=== PATIENT | male | born 1985 | race American Indian/Alaskan Native ===

== ENCOUNTER 2016-12-10 22:41 | Inpatient (IN) | payer MEDICAID, OTHER ==
--- NOTE | 2016-12-10 23:01 | C.PDOC ---
History Of Present Illness Patient is a medically cleared transfer for psychiatric admission from [facility], accepted under Dr. Easley for schizoaffective disorder. Denies physical complaints at this time. Time Seen by Provider: 12/10/16 23:00 Chief Complaint (Nursing): Psychiatric Evaluation History Per: Patient History/Exam Limitations: no limitations Onset/Duration Of Symptoms: Days Current Symptoms Are (Timing): Still Present Suicide/Self Injury Attempted (Context): None Modifying Factor(s): None Severity: None Pain Scale Rating Of: 0 Associated Symptoms: denies: Depression, Suicidal Thoughts, Suicidal Plan Involuntary Hold By: None Recent travel outside of the [facility]: No Past Medical History Reviewed: Historical Data, Nursing Documentation, Vital Signs Vital Signs: Last Vital Signs Temp 98.3 F 12/10/16 22:46 Pulse 102 H 12/10/16 22:46 Resp 16 12/10/16 22:46 BP 109/63 12/10/16 22:46 Pulse Ox 99 12/10/16 23:01 - Medical History PMH: Schizophrenia Surgical History: No Surg Hx Family History: States: Unknown Family Hx - Social History Hx Alcohol Use: No Hx Substance Use: No - Immunization History Hx Tetanus Toxoid Vaccination: No Hx Influenza Vaccination: No Hx Pneumococcal Vaccination: No Review Of Systems Constitutional: Negative for: Fever, Chills Gastrointestinal: Negative for: Nausea, Vomiting, Diarrhea Psych: Positive for: Psychosis Physical Exam - Physical Exam Appears: Non-toxic, No Acute Distress Skin: Normal Color, Warm, Dry Head: Atraumatic, Normacephalic Oral Mucosa: Moist Chest: Symmetrical, No Tenderness Cardiovascular: Rhythm Regular, No Murmur Respiratory: No Rales, No Rhonchi, No Wheezing Gastrointestinal/Abdominal: Soft, No Tenderness Neurological/Psych: Oriented x3 ED Course And Treatment O2 Sat by Pulse Oximetry: 99 (Room air) Pulse Ox Interpretation: Normal Disposition Discussed With : Rocio Easley Comment: accepted the pt on his service and took over the care at 11 PM Doctor Will See Patient In The: Hospital Counseled Patient/Family Regarding: Studies Performed, Diagnosis - Disposition Disposition: HOSPITALIZED Disposition Time: 23:00 Condition: FAIR Forms: [facility] (Turkmen) - POA Present On Arrival: None - Clinical Impression Clinical Impression: Schizoaffective disorder - Scribe Statement The provider has reviewed the documentation as recorded by the Scribe Alex Ashraf All medical record entries made by the Mannyibhorace were at my direction and personally dictated by me. I have reviewed the chart and agree that the record accurately reflects my personal performance of the history, physical exam, medical decision making, and the department course for this patient. I have also personally directed, reviewed, and agree with the discharge instructions and disposition. Decision To Admit - Pt Status Changed To: Hospital Disposition Of: Inpatient - Admit Certification Admit to Inpatient:: After my assessment, the patient will require hospitalization for at least two midnights. This is because of the severity of symptoms shown, intensity of services needed, and/or the medical risk in this patient being treated as an outpatient. - InPatient: Physician Admission Certification: I certify that this patient requires 2 or more midnights of care for the following reason:: After my assessment, the patient will require hospitalization for at least two midnights. This is because of the severity of symptoms shown, intensity of services needed, and/or the medical risk in this patient being treated as an outpatient. - . Bed Request Type: Psychiatry Admitting Physician: Rocio Easley Patient Diagnosis: Schizoaffective disorder
--- NOTE | 2016-12-11 00:04 | PCM.BM ---
<Teodoro Sultana - Last Filed: 12/11/16 00:01> Treatment Plan Problems - Problems identified on initial assessmt Depression Date Initiated: 12/10/16 Time Initiated: 23:50 Assessment reference: NA Status: Active Auditory Hallucination Date Initiated: 12/10/16 Time Initiated: 23:50 Assessment reference: NA Status: Active Suicidal Ideation Date Initiated: 12/10/16 Time Initiated: 23:50 Assessment reference: NA Status: Active Treatment assets and liabiliti Patient Assests: cooperative, self-reliant, ADL independent, physically healthy Patient Liabilities: live alone, physical pain, financial problems, poor support system, substance abuse (Patient is a poor historian) - Milieu Protocol Maintain good personal hygiene: daily Encourage regular showers, daily Remind patient to perform daily oral care, daily Assist patient to perform ADL's Maintain personal safety: every shift Educate patient to report safety concerns to staff, every shift Monitor environment for contraband/sharps Medication safety: Monitor for expected outcome, potential side effects: every shift, Assess barriers to learning: every shift, Assess readiness for medication education: every shift <Magalis Mccabe - Last Filed: 12/12/16 11:08> Family Contact Family involvement: Family/SO is involved Family contact: Patient agrees to contact Family contact name: Santos Gallego Family contacted how many times per week?: 1 - Goals for Treatment Patient goals for treatment: "I don't want to take meds." Discharge/Continuing Care - Education Needs Education Needs: Patient Medication, Patient Coping Skills - Discharge Discharge Criteria: Tolerates medication w/o severe side effects, Free of Suicidal thoughts Discharge to:: Group Home - Treatment Team Participation Patient/Family/SO Statement: 12/12/16 11:09 "Medication makes me tongue tied." Discussed with Family/SO: Yes Was Patient/Family/SO present at Treatment Team Meeting: Yes <Rocio Easley - Last Filed: 12/12/16 11:20> - Diagnosis (1) Schizoaffective disorder Status: Acute Interventions: 12/12/16 11:20 Attend groups Take meds
--- NOTE | 2016-12-11 16:12 | PCM.PSYCH ---
Initial Psychiatric Evaluation - Initial Psychiatric Evaluation Type of Admission: Voluntary Legal Status: Capacity Chief Complaint (in patient's own words): I was hearing voices." History of Present Illness and Precipitating Events: Patient is a 31 y.o. Male, currently unemployed and homeless was admitted for depression, and auditory hallucinations. Patient appeared disorganized and internally preoccupied. He remained paranoid and delusional throughout the evaluation. Patient says his sister took him to [facility] [place] yesterday and transferred to [facility]. Patient's sister was contacted by phone to inquire reason for admission but could not be reached. Patient reports hearing voices, telling him to do stuff. when asked how many voices he says 1. Patient says last time he was at [facility] [place] was approximately 5 years ago for suicidal ideation. Patient says he did not see a psychiatrist after that hospitalization. Patient is currently homeless since last year and was living with his mother before becoming homeless. Patient currently does not have a job and has not been working for a long time. Patient says he is currently not taking any medications. Patient denies drug use, however urine drug screen was positive for heroin and cocaine. Patient says he does not remember when the last time he used drugs was or how much he used. Patient denies any allergies but says that the pill locks his tongue. Patient did not specify which medication was the pill. Patient reports feeling depressed and reports feelings of hopelessness and helplessness. Patient remained superficially cooperative but guarded about the details. He denies any visual hallucinations or delusions. PMH None Current Medications: Active Medications Generic Name Dose Route Start Last Admin Trade Name Freq PRN Reason Stop Dose Admin Benztropine Mesylate 2 mg 12/11/16 00:01 Cogentin PO Q6 PRN Extra Pyramidal Symptoms Dicyclomine HCl 10 mg 12/11/16 00:01 Bentyl PO Q6 PRN Muscle spasm Diphenhydramine HCl 50 mg 12/11/16 00:01 Benadryl PO Q6 PRN Extra Pyramidal Symptoms Haloperidol 5 mg 12/11/16 00:01 Haldol PO Q8 PRN Moderate Agitation Haloperidol Lactate 5 mg 12/11/16 00:01 Haldol IM Q8 PRN Moderate Agitation Hydroxyzine HCl 25 mg 12/11/16 00:03 Atarax PO Q6 PRN Anxiety Trazodone HCl 50 mg 12/11/16 22:00 Desyrel PO HS DINA Past Psychiatric History - Past Psychiatric History Previous Treatment History: Inpatient Pertinent Medical Hx (Current Medical&Sleep Prob, Allergies): Allergies Allergy/AdvReac Type Severity Reaction Status Date / Time No Known Allergies Allergy Unverified 12/10/16 22:55 Unobtainable 12/10/16 Review of Systems - Review of Systems All systems: reviewed and no additional remarkable complaints except - Psychiatric Psychiatric: Anxiety, Auditory Hallucinations, Irritability, Paranoia Mental Status Examination - Personal Presentation Personal Presentation: Looks stated age - Affect Affect: Constricted, Depressed - Motor Activity Motor Activity: Calm - Reliability in Providing Information Reliability in Providing Information: Poor, due to alteration in thoughts, Poor , due to altered mood - Speech Speech: Disorganized - Mood Mood: Depressed, Anxious - Formal Thought Process Formal Thought Process: Hallucinations, Delusions, Paranoia, Loosening of associations - Hallucinations/Delusions Hallucinations: Auditory - Obsessions/Compulsions Obsessions: No Compulsions: No - Cognitive Functions Orientation: Person, Place, Situation, Time Sensorium: Alert Attention/Concentration: Attentive Abstract Thinking: [place] Estimate of Intelligence: Below average Judgement: Imparied, as evidence by: Poor judgement, Imparied, as evidence by: Lack of insight into illness - Risk Risk: Diminished functioning - Strength & Assets Inventory Strength & Assets Inventory: Family support DSM 5 DX - DSM 5 DSM 5 Diagnosis: Schizoaffective disorder depressed type Opioid use disorder moderate Cocaine use disorder moderate - Recommended/Plan of Treatment Treatment Recommendations and Plan of Treatment: Schizoaffective disorder depressed type CBT Psychoeducation Supportive therapy, group therapy, individual therapy Neurontin 100 mg pO TID Trazodone 50 mg by mouth daily at bedtime Opioid use disorder moderate CBT Psychoeducation Supportive therapy, individual therapy Clonidine when necessary Cocaine use disorder moderate CBT Psychoeducation Supportive therapy, individual therapy Use [place] for abstinence
--- NOTE | 2016-12-12 10:47 | PCM.PYCHPN ---
Psychiatric Progress Note - Psychiatric Progress Note Patient seen today, length of contact: 17 min Patient Chief Complaint: I am hearing voices." Problems Identified/Issues Discussed: Patient seen and evaluated, chart reviewed and discussed with the nurse. Patient remained disorganized and internally preoccupied. Patient remained isolated, confined and withdrawn. Staff reports that pt was talking to himself in AM. He still reports of hearing voices. Patient still appears paranoid and delusional. He reports depressed mood and feelings of hopelessness and helplessness. He is refusing to take medications. Supportive therapy and psychoeducation were given. Medication Change: Yes (start prolixin) Medical Record Reviewed: Yes Mental Status Examination - Cognitive Function Orientation: Person, Place, Situation, Time Memory: Intact Attention: Poor Concentration: Poor Association: Loose Fund of Knowledge: Poor - Mood Mood: Depressed, Anxious - Affect Affect: Constricted, Depressed - Speech Speech: Soft - Formal Thought Process Formal Thought Process: Hallucinations, Delusions, Paranoia, Loosening of associations - Suicidal Ideation Suicidal Ideation: No - Homicidal Ideation Homicidal Ideation: No Goal/Treatment Plan - Goal/Treatment Plan Need for Continued Stay: Discharge may exacerbated symptoms, Severe functional impairment Progress Toward Problem(s) and Goals/Treatment Plan: Schizoaffective disorder depressed type CBT Psychoeducation Supportive therapy, group therapy, individual therapy Neurontin 300 mg pO TID Trazodone 50 mg by mouth daily at bedtime Proloxin 5 mg PO BID Cogentin 1 mg PO BID Opioid use disorder moderate CBT Psychoeducation Supportive therapy, individual therapy Clonidine when necessary Cocaine use disorder moderate CBT Psychoeducation Supportive therapy, individual therapy Use [place] for abstinence - Smoking Cessation Smoking Cessation Initiated: No
--- NOTE | 2016-12-13 19:14 | PCM.PYCHPN ---
Psychiatric Progress Note - Psychiatric Progress Note Patient seen today, length of contact: 17 min Patient Chief Complaint: "I can't take these meds!!" Problems Identified/Issues Discussed: The pt is seen, chart reviewed and case discussed. He is very paranoid, bizarre and internally preoccupied. He is fixated on his "tongue locking up," with meds which he likely had sometime in the past. No matter what reassurance given about meds like seroquel he wouldn;t yield or understand. He is unengagable almost. Forms Examiner first ordered seroquel but it would take so long to reach a therapeutic dose and he is too paranoid about meds, so zyprexa is started instead. Risks discussed. Coegntin is even kept despite no need, until he gets more reasonable. He denied SI, HI. Affect is odd, isolates self a lot, talks to self Medication Change: Yes (DC all and start zyprexa) Medical Record Reviewed: Yes Mental Status Examination - Cognitive Function Orientation: Person, Place, Situation, Time Memory: Intact Attention: Poor Concentration: Poor Association: Loose Fund of Knowledge: Poor - Mood Mood: Depressed, Anxious - Affect Affect: Constricted, Depressed - Speech Speech: Soft - Formal Thought Process Formal Thought Process: Hallucinations, Delusions, Paranoia, Loosening of associations - Suicidal Ideation Suicidal Ideation: No - Homicidal Ideation Homicidal Ideation: No Goal/Treatment Plan - Goal/Treatment Plan Need for Continued Stay: Discharge may exacerbated symptoms, Severe functional impairment Progress Toward Problem(s) and Goals/Treatment Plan: Zyprexa 10 mg for psychosis prn meds Psychoed Support After care likely to [facility] or [facility] and with IC[facility] Estimated Date of D/C: 12/19/16
--- NOTE | 2016-12-14 19:29 | PCM.PYCHPN ---
Psychiatric Progress Note - Psychiatric Progress Note Patient seen today, length of contact: 18 min Patient Chief Complaint: "I get tongue problems" Problems Identified/Issues Discussed: The pt is seen, chart reviewed and case discussed. He is STILL very paranoid, bizarre and internally preoccupied. Refused meds again and seroquel is switched to zyprexa He is fully fixated on his "tongue locking up," with meds which he likely had sometime in the past. he is also on cogentin which he takes He denied SI, HI. Affect is odd, isolates self a lot, talks to self, smiles to self Psychoed on meds and risks given Medication Change: Yes (DC all and start zyprexa) Medical Record Reviewed: Yes Mental Status Examination - Cognitive Function Orientation: Person, Place, Situation, Time Memory: Intact Attention: Poor Concentration: Poor Association: Loose Fund of Knowledge: Poor - Mood Mood: Depressed, Anxious - Affect Affect: Constricted, Depressed - Speech Speech: Soft - Formal Thought Process Formal Thought Process: Hallucinations, Delusions, Paranoia, Loosening of associations - Suicidal Ideation Suicidal Ideation: No - Homicidal Ideation Homicidal Ideation: No Goal/Treatment Plan - Goal/Treatment Plan Need for Continued Stay: Discharge may exacerbated symptoms, Severe functional impairment Progress Toward Problem(s) and Goals/Treatment Plan: Zyprexa 10 mg for psychosis prn meds Psychoed Support After care likely to [facility] or [facility] and with ICMS Estimated Date of D/C: 12/19/16
--- NOTE | 2016-12-15 15:29 | PCM.PYCHPN ---
Psychiatric Progress Note - Psychiatric Progress Note Patient seen today, length of contact: 18 min Patient Chief Complaint: I am hearing voices." Problems Identified/Issues Discussed: Patient seen and evaluated, chart reviewed and discussed with the nurse. Patient remained internally preoccupied and still responding to internal stimuli. Patient is isolated and withdrawn. Patient was walking in hallway and said "I'll call you" to himself. As per the staff pt took his zyprexa last night , denies any side effects and feels the medications are helping him. Patient says the "medications are not locking his tongue" currently but is worried they may eventually. Patient denies any SI/HI. Supportive therapy and psychoeducation were given. Medication Change: Yes (DC all and start zyprexa) Medical Record Reviewed: Yes Mental Status Examination - Cognitive Function Orientation: Person, Place, Situation, Time Memory: Intact Attention: Poor Concentration: Poor Association: Loose Fund of Knowledge: Poor - Mood Mood: Depressed, Anxious - Affect Affect: Constricted, Depressed - Speech Speech: Soft - Formal Thought Process Formal Thought Process: Hallucinations, Delusions, Paranoia, Loosening of associations - Suicidal Ideation Suicidal Ideation: No - Homicidal Ideation Homicidal Ideation: No Goal/Treatment Plan - Goal/Treatment Plan Need for Continued Stay: Discharge may exacerbated symptoms, Severe functional impairment Progress Toward Problem(s) and Goals/Treatment Plan: Schizoaffective disorder depressed type CBT Psychoeducation Supportive therapy, group therapy, individual therapy D/C Neurontin 300 mg pO TID Trazodone 50 mg by mouth daily at bedtime D/C Proloxin 5 mg PO BID Cogentin 1 mg PO BID Zyprexa 10 mg O QHS Opioid use disorder moderate CBT Psychoeducation Supportive therapy, individual therapy Clonidine when necessary Cocaine use disorder moderate CBT Psychoeducation Supportive therapy, individual therapy Use [place] for abstinence Estimated Date of D/C: 12/19/16 - Smoking Cessation Smoking Cessation Initiated: No
--- NOTE | 2016-12-16 15:46 | PCM.PYCHPN ---
Psychiatric Progress Note - Psychiatric Progress Note Patient seen today, length of contact: 18 min Patient Chief Complaint: I am hearing voices." Problems Identified/Issues Discussed: Patient seen and evaluated, chart reviewed and discussed with the nurse. Patient reports feeling "alright." However, as per the staff, patient remains withdrawn, isolated, paranoid and bizarre. Patient is internally preoccupied and responding to internal stimuli. Patient was seen swinging his arms in the air and talking to himself. Patient says he is taking his medications and that "these medications are good" and not "lock up his tongue." Patient denies SI or any plan. He needs more time to stabilize. Supportive therapy and psychoeducation were given. Medication Change: Yes (increase zyprexa) Medical Record Reviewed: Yes Mental Status Examination - Cognitive Function Orientation: Person, Place, Situation, Time Memory: Intact Attention: Poor Concentration: Poor Association: Loose Fund of Knowledge: Poor - Mood Mood: Depressed, Anxious - Affect Affect: Constricted, Depressed - Speech Speech: Soft - Formal Thought Process Formal Thought Process: Hallucinations, Delusions, Paranoia, Loosening of associations - Suicidal Ideation Suicidal Ideation: No - Homicidal Ideation Homicidal Ideation: No Goal/Treatment Plan - Goal/Treatment Plan Need for Continued Stay: Discharge may exacerbated symptoms, Severe functional impairment Progress Toward Problem(s) and Goals/Treatment Plan: Schizoaffective disorder depressed type CBT Psychoeducation Supportive therapy, group therapy, individual therapy Trazodone 50 mg by mouth daily at bedtime Cogentin 1 mg PO BID Zyprexa 10 mg O QHS Zyprexa 5 mg PO Daily Opioid use disorder moderate CBT Psychoeducation Supportive therapy, individual therapy Clonidine when necessary Cocaine use disorder moderate CBT Psychoeducation Supportive therapy, individual therapy Use [place] for abstinence Estimated Date of D/C: 12/19/16 - Smoking Cessation Smoking Cessation Initiated: No
--- NOTE | 2016-12-17 11:09 | PCM.PYCHPN ---
Psychiatric Progress Note - Psychiatric Progress Note Patient seen today, length of contact: 18 min Patient Chief Complaint: I am hearing voices." Problems Identified/Issues Discussed: Patient seen and evaluated, chart reviewed and discussed with the nurse. Patient reports feeling "real good." Patient remains isolated and withdrawn and bizarre. Patient is internally preoccupied and responding to internal stimuli. Patient is seen talking to himself in the hallway and swinging his arms in the air. Patient says he is taking his medications and that "these medications are good" and do not "lock up his tongue." Patient denies SI or any plan, racing thoughts or AVH. He needs more time to stabilize. Supportive therapy and psychoeducation were given. Medication Change: Yes (increase zyprexa) Medical Record Reviewed: Yes Mental Status Examination - Cognitive Function Orientation: Person, Place, Situation, Time Memory: Intact Attention: Poor Concentration: Poor Association: Loose Fund of Knowledge: Poor - Mood Mood: Depressed, Anxious - Affect Affect: Constricted, Depressed - Speech Speech: Soft - Formal Thought Process Formal Thought Process: Hallucinations, Delusions, Paranoia, Loosening of associations - Suicidal Ideation Suicidal Ideation: No - Homicidal Ideation Homicidal Ideation: No Goal/Treatment Plan - Goal/Treatment Plan Need for Continued Stay: Discharge may exacerbated symptoms, Severe functional impairment Progress Toward Problem(s) and Goals/Treatment Plan: Schizoaffective disorder depressed type CBT Psychoeducation Supportive therapy, group therapy, individual therapy Trazodone 50 mg by mouth daily at bedtime Cogentin 1 mg PO BID Zyprexa 10 mg O QHS Zyprexa 5 mg PO Daily Opioid use disorder moderate CBT Psychoeducation Supportive therapy, individual therapy Clonidine when necessary Cocaine use disorder moderate CBT Psychoeducation Supportive therapy, individual therapy Use [place] for abstinence Estimated Date of D/C: 12/19/16
--- NOTE | 2016-12-18 14:43 | PCM.PYCHPN ---
Psychiatric Progress Note - Psychiatric Progress Note Patient seen today, length of contact: 18 min Patient Chief Complaint: I am not hearing voices anymore." Problems Identified/Issues Discussed: Patient seen and evaluated, chart reviewed and discussed with the nurse. Patient reports that he is not hearing any voices. Patient appeared more organized than before but remained internally preoccupied and responding to internal stimuli. Patient is still talking to himself in the hallway and swinging his arms in the air. Patient remains isolated and withdrawn and bizarre. Patient is taking his medications and denies any side effects. He needs more time to stabilize. Supportive therapy and psychoeducation were given. Medication Change: No Medical Record Reviewed: Yes Mental Status Examination - Cognitive Function Orientation: Person, Place, Situation, Time Memory: Intact Attention: Poor Concentration: Poor Association: Loose Fund of Knowledge: Poor - Mood Mood: Depressed, Anxious - Affect Affect: Constricted, Depressed - Speech Speech: Soft - Formal Thought Process Formal Thought Process: Hallucinations, Delusions, Paranoia, Loosening of associations - Suicidal Ideation Suicidal Ideation: No - Homicidal Ideation Homicidal Ideation: No Goal/Treatment Plan - Goal/Treatment Plan Need for Continued Stay: Discharge may exacerbated symptoms, Severe functional impairment Progress Toward Problem(s) and Goals/Treatment Plan: Schizoaffective disorder depressed type CBT Psychoeducation Supportive therapy, group therapy, individual therapy Trazodone 50 mg by mouth daily at bedtime Cogentin 1 mg PO BID Zyprexa 10 mg O QHS Zyprexa 5 mg PO Daily Opioid use disorder moderate CBT Psychoeducation Supportive therapy, individual therapy Clonidine when necessary Cocaine use disorder moderate CBT Psychoeducation Supportive therapy, individual therapy Use [place] for abstinence Estimated Date of D/C: 12/19/16 - Smoking Cessation Smoking Cessation Initiated: No
--- NOTE | 2016-12-19 08:17 | PCM.BM ---
<Magalis Mccabe - Last Filed: 12/19/16 11:42> Treatment Plan Problems - Problems identified on initial assessmt Problem 1 Date Initiated: 12/10/16 Time Initiated: 23:50 Assessment reference: NA Status: Active Problem 2 Date Initiated: 12/10/16 Time Initiated: 23:50 Assessment reference: NA Status: Active Depression Date Initiated: 12/10/16 Time Initiated: 23:50 Assessment reference: NA Status: Active Auditory Hallucination Date Initiated: 12/10/16 Time Initiated: 23:50 Assessment reference: NA Status: Active Suicidal Ideation Date Initiated: 12/10/16 Time Initiated: 23:50 Assessment reference: NA Status: Active Treatment assets and liabiliti Patient Assests: cooperative, self-reliant, ADL independent, physically healthy Patient Liabilities: live alone, physical pain, financial problems, poor support system, substance abuse (Patient is a poor historian) - Milieu Protocol Maintain good personal hygiene: daily Encourage regular showers, daily Remind patient to perform daily oral care, daily Assist patient to perform ADL's Maintain personal safety: every shift Educate patient to report safety concerns to staff, every shift Monitor environment for contraband/sharps Medication safety: Monitor for expected outcome, potential side effects: every shift, Assess barriers to learning: every shift, Assess readiness for medication education: every shift Milieu Narrative: Schizoaffective disorder depressed type CBT Psychoeducation Supportive therapy, group therapy, individual therapy Trazodone 50 mg by mouth daily at bedtime Cogentin 1 mg PO BID Zyprexa 10 mg O QHS Zyprexa 5 mg PO Daily Opioid use disorder moderate CBT Psychoeducation Supportive therapy, individual therapy Clonidine when necessary Cocaine use disorder moderate CBT Psychoeducation Supportive therapy, individual therapy Use [place] for abstinence Family Contact Family involvement: Family/SO is involved Family contact: Patient agrees to contact ("I need to get into rehab."), Patient declines to allow family contact at present Family contact name: MotherCameron Gallego Family contacted how many times per week?: 1 - Goals for Treatment Patient goals for treatment: "I don't want to take meds." Discharge/Continuing Care - Education Needs Education Needs: Patient Medication, Patient Coping Skills - Discharge Discharge Criteria: Tolerates medication w/o severe side effects, Free of Suicidal thoughts Discharge to:: [facility] - Treatment Team Participation Patient/Family/SO Statement: Schizoaffective disorder depressed type CBT Psychoeducation Supportive therapy, group therapy, individual therapy Trazodone 50 mg by mouth daily at bedtime Cogentin 1 mg PO BID Zyprexa 10 mg O QHS Zyprexa 5 mg PO Daily Opioid use disorder moderate CBT Psychoeducation Supportive therapy, individual therapy Clonidine when necessary Cocaine use disorder moderate CBT Psychoeducation Supportive therapy, individual therapy Use [place] for abstinence Discussed with Family/SO: Yes Was Patient/Family/SO present at Treatment Team Meeting: Yes Treatment Plan Review - Problem Problem 1 Date Initiated: 12/19/16 Time Initiated: 11:43 Progress toward outcomes: improved Problem 2 Date Initiated: 12/19/16 Time Initiated: 11:43 Progress toward outcomes: improved Depression Date Initiated: 12/19/16 Time Initiated: 11:43 Progress toward outcomes: improved Auditory Hallucination Date Initiated: 12/19/16 Time Initiated: 11:44 Progress toward outcomes: improved Suicidal Ideation Date Initiated: 12/19/16 Time Initiated: 11:44 Progress toward outcomes: resolved (Pt denies S/I) Date resolved: 12/19/16 <Shelly Shin - Last Filed: 12/19/16 23:24> - Diagnosis (1) Schizoaffective disorder Status: Acute Interventions: 12/12/16 11:20 Attend groups Take meds 12/19/16 23:24 * Assess/adjust medications daily and /or as needed * Discuss risks, benefits, sided effects and alternatives of medications * See patient on an individual basis 7x/week to assess level of delusional thoughts/ideation *
--- NOTE | 2016-12-19 08:55 | PCM.PYCHPN ---
Psychiatric Progress Note - Psychiatric Progress Note Patient seen today, length of contact: 18 min Patient Chief Complaint: "I need a place to live when I leave here" Problems Identified/Issues Discussed: Patient seen and evaluated, chart reviewed and case discussed with staff and attending. Mr Gallego states he's feeling 100% today. He denies auditory or visual hallucinations. He denies suicidal ideations. He denies delusions or paranoia. He remains isolated but appears organized and does not appear internally preoccupied. Affect is constricted and depressed. He was concerned about finding placement into a home upon discharged and is worried that he'll end up back on the streets homeless. Patient is taking his medications and denies any side effects. Support given, psychoeducation given Medication Change: No Medical Record Reviewed: Yes Mental Status Examination - Cognitive Function Orientation: Person, Place, Situation, Time Memory: Intact Attention: Poor Concentration: Poor Association: Loose Fund of Knowledge: Poor Decription of patient's judgement and insights: good judgement as he was concerned about placement upon discharge - Mood Mood: Depressed, Anxious - Affect Affect: Constricted, Depressed - Speech Speech: Soft - Formal Thought Process Formal Thought Process: No Impairment - Suicidal Ideation Suicidal Ideation: No - Homicidal Ideation Homicidal Ideation: No Goal/Treatment Plan - Goal/Treatment Plan Need for Continued Stay: Discharge may exacerbated symptoms, Severe functional impairment Progress Toward Problem(s) and Goals/Treatment Plan: Schizoaffective disorder depressed type CBT Psychoeducation Supportive therapy, group therapy, individual therapy Trazodone 50 mg by mouth daily at bedtime Cogentin 1 mg PO BID Zyprexa 10 mg O QHS Zyprexa 5 mg PO Daily Opioid use disorder moderate CBT Psychoeducation Supportive therapy, individual therapy Clonidine when necessary Cocaine use disorder moderate CBT Psychoeducation Supportive therapy, individual therapy Use [place] for abstinence Estimated Date of D/C: 12/19/16
[2016-12-19 09:38] VITALS: O2SAT 99
--- NOTE | 2016-12-20 20:40 | PCM.PYCHPN ---
Psychiatric Progress Note - Psychiatric Progress Note Patient seen today, length of contact: 18 min Patient Chief Complaint: I'm fine Problems Identified/Issues Discussed: Patient was seen. Chart was reviewed important content noted. Nurse input received. Patient has no new complaints. No events overnight. Patient slept well and is eating well. Patient denies any depressive symptoms. Denies suicidal or homicidal ideations. Patient does not report hallucinations. No delusions elicited. No paranoia elicited. Patient has remained in good clinical and behavioral control. Patient is finding medications beneficial and would like to continue with treatment plan. Patient appreciated that treatment team is trying to help. Diagnostic Results: no new labs DSM 5 Symptoms Update: Schizoaffective d/o Medication Change: No Medical Record Reviewed: Yes Mental Status Examination - Cognitive Function Orientation: Person, Place, Situation, Time Memory: Intact Attention: WNL Concentration: WNL Association: WNL Fund of Knowledge: WNL - Mood Mood: Depressed - Affect Affect: Constricted, Depressed - Speech Speech: Soft - Formal Thought Process Formal Thought Process: No Impairment - Suicidal Ideation Suicidal Ideation: No - Homicidal Ideation Homicidal Ideation: No Goal/Treatment Plan - Goal/Treatment Plan Need for Continued Stay: Discharge may exacerbated symptoms, Severe functional impairment Progress Toward Problem(s) and Goals/Treatment Plan: Schizoaffective disorder depressed type CBT Psychoeducation Supportive therapy, group therapy, individual therapy Trazodone 50 mg by mouth daily at bedtime Cogentin 1 mg PO BID Zyprexa 10 mg O QHS Zyprexa 5 mg PO Daily Opioid use disorder moderate CBT Psychoeducation Supportive therapy, individual therapy Clonidine when necessary Cocaine use disorder moderate CBT Psychoeducation Supportive therapy, individual therapy Use [place] for abstinence Estimated Date of D/C: 12/19/16 - Smoking Cessation Smoking Cessation Initiated: Yes
--- NOTE | 2016-12-21 20:37 | PCM.PYCHPN ---
Psychiatric Progress Note - Psychiatric Progress Note Patient seen today, length of contact: 18 min Patient Chief Complaint: I'm ok Problems Identified/Issues Discussed: Patient was seen. Chart was reviewed important content noted. Nurse input received that pt is internally preoccupied and responding to stimuli. Patient has no new complaints. No events overnight. Patient slept well and is eating well. Patient denies any depressive symptoms. Denies suicidal or homicidal ideations. Patient does not report hallucinations, but appeared internally preoccupied. No delusions elicited. No paranoia elicited. Patient has remained in good clinical and behavioral control. Patient is finding medications beneficial and would like to continue with treatment plan. Patient appreciated that treatment team is trying to help. Diagnostic Results: no new labs DSM 5 Symptoms Update: Schizoaffective d/o Medication Change: No Medical Record Reviewed: Yes Mental Status Examination - Cognitive Function Orientation: Person, Place, Situation, Time Memory: Intact Attention: WNL Concentration: WNL Association: WNL Fund of Knowledge: WNL - Mood Mood: Depressed - Affect Affect: Constricted - Speech Speech: Soft - Formal Thought Process Formal Thought Process: No Impairment Psychotic Thoughts and Behaviors: Appeared internally preoccupied - Suicidal Ideation Suicidal Ideation: No - Homicidal Ideation Homicidal Ideation: No Goal/Treatment Plan - Goal/Treatment Plan Need for Continued Stay: Discharge may exacerbated symptoms, Severe functional impairment Progress Toward Problem(s) and Goals/Treatment Plan: Schizoaffective disorder depressed type CBT Psychoeducation Supportive therapy, group therapy, individual therapy Trazodone 50 mg by mouth daily at bedtime Cogentin 1 mg PO BID Zyprexa 10 mg O QHS Zyprexa 5 mg PO Daily Opioid use disorder moderate CBT Psychoeducation Supportive therapy, individual therapy Clonidine when necessary Cocaine use disorder moderate CBT Psychoeducation Supportive therapy, individual therapy Use [place] for abstinence
--- NOTE | 2016-12-22 16:01 | PCM.PYCHPN ---
Psychiatric Progress Note - Psychiatric Progress Note Patient seen today, length of contact: 16 min Patient Chief Complaint: "I am feeling well." Problems Identified/Issues Discussed: Patient seen and evaluated, chart reviewed and discussed with staff. Patient reports that he is not hearing any voices. Patient appears organized, calm, without any noticeable unusual behavior. Patient denies hallucinations Patient denies anxiety or depression Patient denies changes in mood or racing thoughts Patient still remains isolated. Patient is taking his medications and denies any side effects. He needs more time to stabilize. Supportive therapy and psychoeducation were given. Medication Change: No Medical Record Reviewed: Yes Mental Status Examination - Cognitive Function Orientation: Person, Place, Situation, Time Memory: Intact Attention: WNL Concentration: WNL Association: WNL Fund of Knowledge: WNL - Mood Mood: Depressed - Affect Affect: Constricted - Speech Speech: Soft - Formal Thought Process Formal Thought Process: No Impairment - Suicidal Ideation Suicidal Ideation: No - Homicidal Ideation Homicidal Ideation: No Goal/Treatment Plan - Goal/Treatment Plan Need for Continued Stay: Discharge may exacerbated symptoms, Severe functional impairment Progress Toward Problem(s) and Goals/Treatment Plan: Schizoaffective disorder depressed type CBT Psychoeducation Supportive therapy, group therapy, individual therapy Trazodone 50 mg by mouth daily at bedtime Cogentin 1 mg PO BID Zyprexa 10 mg O QHS Zyprexa 5 mg PO Daily Opioid use disorder moderate CBT Psychoeducation Supportive therapy, individual therapy Clonidine when necessary Cocaine use disorder moderate CBT Psychoeducation Supportive therapy, individual therapy Use [place] for abstinence Estimated Date of D/C: 12/19/16
--- NOTE | 2016-12-23 13:41 | PCM.PYCHPN ---
Psychiatric Progress Note - Psychiatric Progress Note Patient seen today, length of contact: 15 min Patient Chief Complaint: "I am OK." Problems Identified/Issues Discussed: Patient seen and evaluated, chart reviewed and discussed with staff. Patient reports that he is not hearing any voices. However, patient is observed talking to himself. Upon questioning, he contributes talking to himself as "something I just do, it has nothing to do with my medical condition." The patient states that he sings to himself, which he states could be mistaken for talking to himself. Patient is a little more sociable. The patient denies suicidal ideation's. The patient denies racing thoughts. The patient denies depression or anxiety. Patient is taking his medications and denies any side effects. He needs more time to stabilize. Supportive therapy and psychoeducation were given. Medication Change: No Medical Record Reviewed: Yes Mental Status Examination - Cognitive Function Orientation: Person, Place, Situation, Time Memory: Intact Attention: WNL Concentration: WNL Association: WNL Fund of Knowledge: WNL - Mood Mood: Depressed - Affect Affect: Constricted - Speech Speech: Soft - Formal Thought Process Formal Thought Process: No Impairment - Suicidal Ideation Suicidal Ideation: No - Homicidal Ideation Homicidal Ideation: No Goal/Treatment Plan - Goal/Treatment Plan Need for Continued Stay: Discharge may exacerbated symptoms, Severe functional impairment Progress Toward Problem(s) and Goals/Treatment Plan: Schizoaffective disorder depressed type CBT Psychoeducation Supportive therapy, group therapy, individual therapy Trazodone 50 mg by mouth daily at bedtime Cogentin 1 mg PO BID Zyprexa 10 mg O QHS Zyprexa 5 mg PO Daily Opioid use disorder moderate CBT Psychoeducation Supportive therapy, individual therapy Clonidine when necessary Cocaine use disorder moderate CBT Psychoeducation Supportive therapy, individual therapy Use [place] for abstinence Estimated Date of D/C: 12/19/16
--- NOTE | 2016-12-24 14:04 | PCM.PYCHPN ---
Psychiatric Progress Note - Psychiatric Progress Note Patient seen today, length of contact: 15 min Patient Chief Complaint: "I am OK." Problems Identified/Issues Discussed: Patient seen and evaluated, chart reviewed and discussed with staff. As per the staff patient is still talking to himself. Upon questioning, he contributes talking to himself as "something I just do, it has nothing to do with my medical condition." The patient states that he sings to himself, which he states could be mistaken for talking to himself. Patient is a little more sociable. The patient denies suicidal ideation's. The patient denies racing thoughts. The patient denies depression or anxiety. Patient is taking his medications and denies any side effects. He needs more time to stabilize. Supportive therapy and psychoeducation were given. Medication Change: Yes (increas eolanzapine) Medical Record Reviewed: Yes Mental Status Examination - Cognitive Function Orientation: Person, Place, Situation, Time Memory: Intact Attention: WNL Concentration: WNL Association: WNL Fund of Knowledge: WNL - Mood Mood: Depressed - Affect Affect: Constricted - Speech Speech: Soft - Formal Thought Process Formal Thought Process: No Impairment - Suicidal Ideation Suicidal Ideation: No - Homicidal Ideation Homicidal Ideation: No Goal/Treatment Plan - Goal/Treatment Plan Need for Continued Stay: Discharge may exacerbated symptoms, Severe functional impairment Progress Toward Problem(s) and Goals/Treatment Plan: Schizoaffective disorder depressed type CBT Psychoeducation Supportive therapy, group therapy, individual therapy Trazodone 50 mg by mouth daily at bedtime Cogentin 1 mg PO BID Zyprexa 10 mg O QHS Zyprexa 5 mg PO Daily Opioid use disorder moderate CBT Psychoeducation Supportive therapy, individual therapy Clonidine when necessary Cocaine use disorder moderate CBT Psychoeducation Supportive therapy, individual therapy Use [place] for abstinence Estimated Date of D/C: 12/19/16
[2016-12-25 07:24] VITALS: RESP 19
--- NOTE | 2016-12-25 15:38 | PCM.PYCHPN ---
Psychiatric Progress Note - Psychiatric Progress Note Patient seen today, length of contact: 16 min Patient Chief Complaint: "I feel well." Problems Identified/Issues Discussed: The pt is seen, chart reviewed, case discussed with staff. The pt denies anxiety, depression, or mood changes. The pt denies suicidal or homicidal ideation's. The pt denies visual or auditory hallucinations, or racing thoughts. The pt is more sociable today and is not observed speaking to himself. Support given, CBT and ID used briefly. The pt is improving slowly and needs more time. No SEs from medications, risks discussed. After care discussed. Medication Change: No Medical Record Reviewed: Yes Mental Status Examination - Cognitive Function Orientation: Person, Place, Situation, Time Memory: Intact Attention: WNL Concentration: WNL Association: WNL Fund of Knowledge: WNL - Mood Mood: Depressed - Affect Affect: Constricted - Speech Speech: Soft - Formal Thought Process Formal Thought Process: No Impairment - Suicidal Ideation Suicidal Ideation: No - Homicidal Ideation Homicidal Ideation: No Goal/Treatment Plan - Goal/Treatment Plan Need for Continued Stay: Discharge may exacerbated symptoms, Severe functional impairment Progress Toward Problem(s) and Goals/Treatment Plan: Schizoaffective disorder depressed type CBT Psychoeducation Supportive therapy, group therapy, individual therapy Trazodone 50 mg by mouth daily at bedtime Cogentin 1 mg PO BID Zyprexa 10 mg O QHS Zyprexa 5 mg PO Daily Opioid use disorder moderate CBT Psychoeducation Supportive therapy, individual therapy Clonidine when necessary Cocaine use disorder moderate CBT Psychoeducation Supportive therapy, individual therapy Use [place] for abstinence Estimated Date of D/C: 12/19/16
[2016-12-26 07:46] VITALS: BP 107/62; PULSE 75; TEMP 98.1
--- NOTE | 2016-12-26 09:39 | PCM.PYCHDC ---
Mental Status Examination - Mental Status Examination Orientation: Person, Place, Situation, Time Memory: Intact Mood: Neutral Affect: Constricted Speech: Soft Attention: WNL Concentration: WNL Association: WNL Fund of Knowledge: WNL Formal Thought Process: No Impairment Description of patient's judgement and insight: good, fair Psychotic Thoughts and Behaviors: denies any AVH Suicidal Ideation: No Current Homicidal Ideation?: No Discharge Summary - Discharge Note Reason for Hospitalization: Patient is a 31 y.o. Male, currently unemployed and homeless was admitted for depression, and auditory hallucinations. Patient appeared disorganized and internally preoccupied. He remained paranoid and delusional throughout the evaluation. Patient says his sister took him to [facility] yesterday and transferred to [facility]. Patient's sister was contacted by phone to inquire reason for admission but could not be reached. Patient reports hearing voices, telling him to do stuff. when asked how many voices he says 1. Patient says last time he was at [facility] [place] was approximately 5 years ago for suicidal ideation. Patient says he did not see a psychiatrist after that hospitalization. Patient is currently homeless since last year and was living with his mother before becoming homeless. Patient currently does not have a job and has not been working for a long time. Patient says he is currently not taking any medications. Patient denies drug use, however urine drug screen was positive for heroin and cocaine. Patient says he does not remember when the last time he used drugs was or how much he used. Patient denies any allergies but says that the pill locks his tongue. Patient did not specify which medication was the pill. Patient reports feeling depressed and reports feelings of hopelessness and helplessness. Patient remained superficially cooperative but guarded about the details. He denies any visual hallucinations or delusions. Consultations:: List each consultation separately and include: 1. Reason for request. 2. Findings. 3. Follow-up Summary of Hospital Course include:: 1. Description of specific treatment plan utilized for patients during their course of treatmen. 2. Summarize the time- course for resolution of acute symptoms and/or regressed behaviors. 3. Describe issues identified and worked on during hospitalization. 4. Describe medication utilized. 5. Describe medical problems identified and treated. 6. Reassessment of suicide risk Summary of Hospital Course: During the course of his stay, patient (pt) started progressively improving and he no longer remained irritable, depressed, suicidal and paranoid. His mood and paranoia were improved and he started attending groups and meetings and started socializing. He started taking care of his hygiene and ADLs, and he no longer remained disheveled and malodorous. Patient denied any feelings of hopelessness , helplessness, and worthlessness, denied any problem with the sleep or appetite , denied suicidal ideation or homicidal ideation. Pt denied any auditory or visual hallucinations. Some changes were made in his current medications and patient was discharged on following medications. He tolerated these medications very well and denied any side effects. - Diagnosis (1) Schizoaffective disorder Status: Acute - Final Diagnosis (DSM 5) Condition upon Discharge: FAIR DSM 5: Schizoaffective disorder depressed type Opioid use disorder moderate Cocaine use disorder moderate Disposition: HOME/ ROUTINE Follow-up Treatment Plan: Education: Pt was educated and counseled about the risks and benefits of taking and not taking medications. Pt was educated and counseled about the risks of drinking and abusing drugs. Pt was educated and counseled to go to the ER or call 911 if pt develop suicidal ideation or homicidal ideation, worsening of symptoms or severe side effects of the meds. Prescriptions/Medication Reconciliation: Benztropine [Cogentin] 1 mg PO BID #60 tab OLANZapine [Zyprexa] 10 mg PO DAILY #30 tab OLANZapine [Zyprexa] 15 mg PO QPM #30 tab traZODone [Desyrel] 50 mg PO HS #30 tab - Smoking Cessation Smoking Cessation Medication prescribed: No - Antipsychotic Medications Pt discharged on 2 or more routine antipsychotic medications: No
== END 2016-12-26 11:10 | disposition home or self-care (01) | DRG 430 ==
LOC: C.ER 22:41 → C.5E 23:01
PROVIDERS: ADMIT Psychiatry & Neurology Psychiatry; ATTEND Psychiatry & Neurology Psychiatry
PROC: GZHZZZZ Group Psychotherapy (ICD-10-PCS; principal; 2016-12-10)
PROC: GZ58ZZZ Individual Psychotherapy, Cognitive-Behavioral (ICD-10-PCS; 2016-12-10)
PROC: GZ56ZZZ Individual Psychotherapy, Supportive (ICD-10-PCS; 2016-12-10)
PROC: HZ32ZZZ Individual Counseling for Substance Abuse Treatment, Cognitive-Behavioral (ICD-10-PCS; 2016-12-10)
PROC: HZ36ZZZ Individual Counseling for Substance Abuse Treatment, Psychoeducation (ICD-10-PCS; 2016-12-10)
DX: F25.1 Schizoaffective disorder, depressive type (principal); F11.20 Opioid dependence, uncomplicated; F14.90 Cocaine use, unspecified, uncomplicated; F22 Delusional disorders; Z79.899 Other long term (current) drug therapy; Z59.0 Homelessness